=== PATIENT | female | born 1970 | race Caucasian/White ===

== ENCOUNTER 2021-03-14 08:00 | Outpatient (CLI) | payer OTHER ==
[2021-03-14 16:33] LABS: BACTERIAL VAGINOSIS DNA NEGATIVE (NEGATIVE); CANDIDA GLABRATA DNA NEGATIVE (NEGATIVE); CANDIDA GROUP DNA NEGATIVE (NEGATIVE); CANDIDA KRUSEI DNA NEGATIVE (NEGATIVE); TRICHOMONAS VAGINALIS DNA NEGATIVE (NEGATIVE)
[2021-03-14 18:59] LABS: CHLAMYDIA TRACHOMATIS DNA NEGATIVE (NEGATIVE); NEISSERIA GONORRHOEAE DNA NEGATIVE (NEGATIVE); TRICHOMONAS VAGINALIS DNA NEGATIVE (NEGATIVE)
== END 2021-03-14 23:59 ==
LOC: LAB.N 08:00
PROVIDERS: ATTEND Family Medicine
DX: R39.9 Unspecified symptoms and signs involving the genitourinary system (principal); L29.8 Other pruritus; R10.2 Pelvic and perineal pain
CPT/HCPCS: 87086; 87491; 87591; 87661; 87801

== ENCOUNTER 2021-12-14 09:38 | Outpatient (CLI) | payer OTHER ==
[2021-12-14 10:20] VITALS: BP 118/72
--- NOTE | 2021-12-14 10:20 | SLEEP CARE CONSULTATION ---
Information from patient questionnaire entered by Alexia Chapa. I have reviewed and concur with the information entered by Alexia Chapa. This document represents the service I personally performed and the decisions made by me, María Reis ARNP. History of Present Illness Service Date and Time: 12/14/2021 0938 Reason for Visit: New patient Chief Complaint: reports: Insomnia, Unrefreshed sleep, Snoring, Excessive daytime sleepiness, Fatigue, Frequent awakenings at night Date of Onset: 20 PLUS YEARS Usual bedtime: 10PM Time it takes to fall asleep: 15-30MIN Snores at night: Yes Observed to quit breathing while asleep: No Sleeps alone due to snoring: Yes Number of times waking at night: 2 Reasons for waking at night: reports: Gasping for air (not as much recently), Bathroom, Other (UNKNOWN REASONS ) Toss, Turn, or Twitch while sleeping: Yes Recalls having dreams: No Usually gets out of bed at: BETWEEN 6-9AM Feels refreshed in the morning: No Morning headache: Yes (4-5 times a week; RESOLVES AFTER BEING AWAKE 30MIN TO AN HOUR) Sleepy or fatigued during the day: Yes (if she sits down after work she will fall asleep) Ever fallen asleep while driving: No Takes day naps: Yes (daily for 1-2 hours; some improved in last 2 weeks) Dreams during day naps: No Prior sleep studies: No Additional HPI information: I had the pleasure of seeing DIANA MCNAIR today regarding the possibility of her having a sleep disorder. Her current complaints are insomnia, unrefreshed sleep, snoring, excessive daytime sleepiness, fatigue and frequent night awakenings. Diana states she has had sleeping/feeling rested issues since she was a teenager. She has snored for a long time. She states she does not have trouble falling asleep. She rarely stays asleep throughout the night. She will wake up 1-3 times a night and stays awake about an hour before dozing back off to sleep. She is not sure why she is awakening, sometimes for the bathroom. She is a loud and frequent snorer according to her family but no one has noted pauses in breathing. She states she used to cough a lot when sleeping and wake up gasping for air but this is not as often in last few months. She started Trazodone for sleep and this is helping her stay asleep and sleep longer. She thinks has also helped with the cough/gasping at night frequency because that is when the episodes started reducing. She will take naps most days and if she sits down after work or other times during the day she can easily fall asleep. 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 Patient is and lives in . Have you smoked in the past 12 months: No Alcohol use: No Caffeine use: Yes Caffeine amount and frequency: 1 soda occassional energy drink 1-2 times per month Family History Family history of sleep disordered breathing: Yes Family Hx Sleep Apnea: Mother: Snoring, Father: Snoring, Sibling: Snoring, Sleep apnea - Untreated, Grandparent: Snoring, Sleep apnea - Untreated Allergies and Home Medications Known drug allergies: No Drug allergies reviewed: Yes (NKDA) Home medication list reviewed: Yes Allergy and home medication list: Medications: Trazodone 100 mg, prn (5 nights a week) Luvora - oral control Review of Systems Weight gain over past 5 years: 40 Cardiovascular: denies: high blood pressure Respiratory: reports: chronic cough Gastrointestinal: denies: heartburn Urinary: reports: incontinence Neurological: reports: headaches Ear/Nose/Throat: reports: sinus problems, wisdom teeth removed. denies: tonsillectomy Endocrine: reports: history of goiter Musculoskeletal: reports: back pain Immunologic: reports: other (seasonal allergies ) Physical Exam Vital signs obtained and entered by: ALEXIA Rock MA Blood Pressure: 118/72 (left arm ) Cuff size: long Heart Rate: 108 O2 Saturation: 97 Height: 5 ft 3 in Weight: 214 lb 6.4 oz Body Mass Index: 38.0 BMI Classification: Obese Neck circumference: 17 Mouth and throat: narrow oropharynx Soft palate: long Hard palate: normal Uvula: normal Uvula visualization: 25% Mallampati Class III Tongue: enlarged in size with teeth sharif on lateral edges Tonsils: small Neck: normal w/o lymphadenopathy or thyromegaly Heart: regular rate and rhythm Lungs: clear bilaterally Impression and Plan 1. Suspected Obstructive Sleep Apnea-Hypopnea Syndrome, as suggested by a history of loud and irregular snoring, gasping or choking in sleep, morning headache, frequent awakening during the night, unrefreshed sleep, cognitive impairment, and excessive daytime sleepiness. Narrow oropharynx and obesity are common predisposing factors for obstructive sleep apnea-hypopnea syndrome. I recommend proceeding to polysomnography to confirm the diagnosis and to assess severity. If the patient has significant sleep disordered breathing, a manual CPAP titration study will also be performed to find the optimal treatment pressure. I informed the patient of what the sleep studies involve and after some discussion, obtained agreement to proceed. The pathophysiology of obstructive sleep apnea-hypopnea syndrome was discussed with the patient and health risks of cardiovascular and cerebrovascular disease if not treated. 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 Patient agreed to plan. * Schedule polysomnography * Avoid long distance driving or driving when feeling sleepy. * Avoid alcohol, sedative and muscle relaxant around bedtime. * Attempt to lose weight. * Review instructions provided by trained office staff on how to prepare for the sleep study. * Return for follow-up after sleep study completed. Counseling Topics: Weight loss health impact Visit Type: In Office Time Spent with Patient (minutes): 30 Provider Statement: I spent 100% of the Face to Face Visit with the patient with greater than 50% spent counseling the patient and coordination of care.
== END 2021-12-14 09:39 | disposition home or self-care (01) ==
LOC: SC 09:38
PROVIDERS: ATTEND Nurse Practitioner Family
DX: R06.83 Snoring (principal); G47.8 Other sleep disorders; G47.00 Insomnia, unspecified; R51.9 Headache, unspecified; G47.10 Hypersomnia, unspecified; R53.83 Other fatigue; E66.9 Obesity, unspecified; Z68.38 Body mass index [BMI] 38.0-38.9, adult
CPT/HCPCS: 99203; 99212

== ENCOUNTER 2022-01-16 08:20 | Outpatient (CLI) | payer OTHER | END 2022-01-16 08:21 | disposition home or self-care (01) | LOC: SC 08:20 | PROVIDERS: ATTEND Nurse Practitioner Family | DX: G47.33 Obstructive sleep apnea (adult) (pediatric) (principal); R09.02 Hypoxemia | CPT/HCPCS: 95806 ==

== ENCOUNTER 2022-01-31 14:58 | Outpatient (CLI) | payer OTHER ==
[2022-01-31 15:30] VITALS: BP 150/80
--- NOTE | 2022-01-31 15:30 | SLEEP CARE CONSULTATION ---
Information from patient questionnaire entered by Teresa Clark. I have reviewed and concur with the information entered by Teresa Clark. This document represents the service I personally performed and the decisions made by me, María Reis ARNP. History of Present Illness Service Date and Time: 01/31/2022 1450 Initial [place] Sleepiness Scale score: 11 (11/22/2021) Current [place] Sleepiness Scale score: 10 (01/31/22) Additional HPI information: OLMAN MCNAIR returns for follow up and results of the recently performed home sleep study. I explained the pathophysiology behind obstructive sleep apnea. We then spent quite a bit of time discussing different treatment options. For mild obstructive sleep apnea, surgery and oral appliance are alternatives to nasal CPAP therapy but in moderate or severe cases, nasal CPAP is the most effective and reliable treatment. Because apnea is primarily in supine position, then positional management therapy could be effective. Methods discussed such as positioning with pillows to prevent supine sleep. I reviewed the impact of weight changes on sleep apnea and strongly recommended losing weight. After some discussion, the patient opted to go with the nasal CPAP therapy. Nasal autoCPAP set at 4-15 cmH20 will be ordered with rationale explained. A manual titration study will be ordered if unable to find optimal pressure with office adjustments. I explained how CPAP machine works and what to expect when using the machine. Using CPAP every night in order to get used to it was emphasized. Patient advised to put CPAP mask on before getting into bed so as not to fall asleep without CPAP. To assist acclimation to CPAP use, it could also be used for a short time during day while reading or watching TV. The patient was instructed to call the CPAP supplier to discuss any mechanical problem that may occur. If the mask given is uncomfortable or is difficult to keep on through the night even with adjustment, contact the CPAP supplier as many will replace with another mask style if notified before 30 days. If snoring or perceives is not getting enough air or too much air from the machine, notify this office. Patient does not drink alcohol. Patient was cautioned about risks of drowsy driving until sleepiness symptoms resolve. Patient denies drowsy driving. Sleep Study - Results Type of Sleep Study: Home sleep study (DONE 01/16/22) Prior sleep studies: No Polysomnography/Home Sleep Study results: Physician Impression: The quality of the study is good. The length of the study is adequate (> 240 minutes). Please also see the tabulated and graphic data. 1. Obstructive Sleep Apnea-Hypopnea (ICD-10 G47.33), mild, with an AHI of 12.2/hr and clement SaO2 of 77%. During the study, the patient had 107 apneas (107 obstructive, 0 central, 0 mixed) and 41 hypopneas. The longest episode lasted 84.0 seconds. The patient did not sleep supine during this study. 2. Hypoxemia (ICD-10 R09.02), moderate, with the lowest oxygen saturation of 77 % and 11.4 minutes with SaO2 under 90%. Baseline oxygen saturation was normal (Average oxygen saturation was 95%). Allergies and Home Medications Drug allergies reviewed: Yes (NKDA) Home medication list reviewed: Yes (no changes) Review of Systems Review of systems same as previous: Yes (no changes) Physical Exam Vital signs obtained and entered by: SHERICE CRUZ Blood Pressure: 150/80 (LEFT ARM ) Cuff size: long Heart Rate: 96 O2 Saturation: 97 Height: 5 ft 3 in Weight: 219 lb Body Mass Index: 38.7 BMI Classification: Obese Impression and Plan 1. Obstructive Sleep Apnea-Hypopnea Syndrome, mild, with lowest oxygen saturation of 77%. Obviously this is the cause of the patients symptoms of unrefreshed sleep, and excessive daytime sleepiness. Positive pressure therapy could benefit asthma. As mentioned above, the patient will be started on nasal autoCPAP therapy with pressure set at 4-15 cmH2O. Compliance guidelines also reviewed. A copy of compliance guidelines will be given for reference at check out. 2. Hypoxemia, moderate, with the lowest oxygen saturation of 77 % and 11.4 minutes with SaO2 under 90%. Her baseline oxygen saturation was normal with an average oxygen saturation of 95%. * Nasal auto CPAP therapy, pressure at 4-15 cm H2O. * Attempt to lose weight. * Avoid alcohol consumption near bedtime. * Avoid supine sleep until using CPAP. * The patient is again cautioned about driving until sleepiness completely resolves. * Return one month after CPAP obtained. I will assess response to therapy and compliance at that time. Counseling Topics: Weight loss health impact Visit Type: In Office Time Spent with Patient (minutes): 20 Provider Statement: I spent 100% of the Face to Face Visit with the patient with greater than 50% spent counseling the patient and coordination of care.
== END 2022-01-31 14:59 | disposition home or self-care (01) ==
LOC: SC 14:58
PROVIDERS: ATTEND Nurse Practitioner Family
DX: G47.33 Obstructive sleep apnea (adult) (pediatric) (principal); R09.02 Hypoxemia; E66.9 Obesity, unspecified; Z68.38 Body mass index [BMI] 38.0-38.9, adult
CPT/HCPCS: 99212; 99213

== ENCOUNTER 2022-03-22 10:10 | Outpatient (CLI) | payer OTHER ==
[2022-03-22 10:39] VITALS: BP 126/78
--- NOTE | 2022-03-22 10:39 | SLEEP CARE CONSULTATION ---
Information from patient questionnaire entered by Alexia Chapa. I have reviewed and concur with the information entered by Alexia Chapa. This document represents the service I personally performed and the decisions made by , María Reis ARNP. History of Present Illness Service Date and Time: 03/22/2022 1010 Previous diagnosis: Mild, Obstructive Sleep Apnea-Hypopnea Syndrome AHI: 12.2 (in 2021) Reason for follow up: first compliance Equipment type: CPAP (RESMED Airsense 11 s/u 01/2022) Equipment obtained from: [employer] (getting supplies) Mask style: Full face Mask brand: Resmed (AirFit F20) Backup mask available: Yes (other mask) Prior sleep studies: No Type of Sleep Study: Home sleep study (DONE 01/16/22) HPI additional information: DIANA MCNAIR was diagnosed to have mild, AHI 12.2, obstructive sleep apnea- hypopnea syndrome and returned today for CPAP therapy first compliance follow- up. Sleep Study - Results Type of Sleep Study: Home sleep study (DONE 01/16/22) Prior sleep studies: No CPAP Compliance Data - Data Reviewed with Patient Average duration of nightly device use: 8 HRS 22 MIN Compliance rate %: 100 (02/19/22-03/20/22; 30 days used) Current pressure setting (cmH2O): 4-15 (median 6.8, avg 10.8, max 12.4) Average residual AHI: 0.3 Central apnea: 0.1 Obstructive apnea: 0.1 Hypopnea: 0.1 Subjective Patient concerns: reports: mask discomfort (improving as she gets used to the mask), air blowing in eyes (from F30i, not using now), mask leak noise (occasional, not bother her much), nasal congestion (occasional, mild). denies: aerophagia, condensation in mask/hose, dry mouth, nose, throat, epistaxis Observed to snore while using device: No Current pressure setting perceived as: too low (at initial startup and occasionally when wakes up at night) On therapy, patient: reports: sleeping better, awakening more refreshed, being more awake and alert during the day, more rested overall. denies: drowsiness while driving Initial [place] Sleepiness Scale score: 11 (11/22/2021) Current [place] Sleepiness Scale score: 4 (03/22/22) Allergies and Home Medications Drug allergies reviewed: Yes (NKDA) Home medication list reviewed: Yes (no changes) Review of Systems Review of systems same as previous: Yes (no changes) Physical Exam Vital signs obtained and entered by: ALEXIA Rock MA Blood Pressure: 126/78 (LEFT ARM) Cuff size: regular Heart Rate: 88 O2 Saturation: 97 Height: 5 ft 3 in Weight: 217 lb 3.2 oz Body Mass Index: 38.5 BMI Classification: Obese Impression and Plan 1. Obstructive Sleep Apnea-Hypopnea Syndrome, mild, with good treatment compliance and good apnea control. On CPAP therapy, the patient has better sleep quality and is more rested overall. She started with a Resmed Airfit F20 but then tried a F30i but felt she had a lot more air leaking into her eyes with the F30i. She changed back to the F20 and feels she is getting used to it and the mask is not as uncomfortable as she thought it was at first. Diana feels the pressure is a little low when she starts the machine at night and sometimes she will wake up in middle of night with same feeling. The patients pressure will be changed to autoCPAP 8-12 cmH20 to reflect pressures being used and her ramp starting pressure will be increased to 6 cmH2O. Patient advised to contact me if pressure change is uncomfortable so that it can be adjusted. Goals for apnea co ntrol discussed. She voiced understanding. Patient's apnea severity and rationale for treatment to reduce apnea, improve sleep quality and reduce cardiovascular and cerebrovascular events was reviewed. I also reviewed the benefit of consistent device use of CPAP for asthma. 2. Obesity, unspecified. Currently patients BMI is 38.5. Obesity increases the risk of apnea, CPAP pressure requirements and overall health risks especially cardiovascular and diabetes. Thus patient is advised to lose weight. * Increase ramp starting pressure to 6 cmH2O * Change auto CPAP pressure to 8-12 cmH2O * Notify me if snoring with mask or feeling that the pressure is too much or too little * Attempt to lose weight * Call this office if any problems using CPAP * Return for follow up in 1-2 months, or sooner if concerns arise Counseling Topics: Spare mask, Weight loss health impact Visit Type: In Office Time Spent with Patient (minutes): 22 Provider Statement: I spent 100% of the Face to Face Visit with the patient with greater than 50% spent counseling the patient and coordination of care.
== END 2022-03-22 10:11 | disposition home or self-care (01) ==
LOC: SC 10:10
PROVIDERS: ATTEND Nurse Practitioner Family
DX: G47.33 Obstructive sleep apnea (adult) (pediatric) (principal); E66.9 Obesity, unspecified; Z68.38 Body mass index [BMI] 38.0-38.9, adult
CPT/HCPCS: 99212; 99213

== ENCOUNTER 2022-05-03 10:58 | Outpatient (CLI) | payer OTHER ==
[2022-05-03 11:39] VITALS: BP 126/78
--- NOTE | 2022-05-03 11:39 | SLEEP CARE CONSULTATION ---
Information from patient questionnaire entered by Freddy Chapa. I have reviewed and concur with the information entered by Freddy Chapa. This document represents the service I personally performed and the decisions made by , María Reis ARNP. History of Present Illness Service Date and Time: 05/03/2022 1058 Previous diagnosis: Mild, Obstructive Sleep Apnea-Hypopnea Syndrome AHI: 12.2 (in 2021) Reason for follow up: other (SIX WEEK F/U PRESSURE CHANGE) Equipment type: CPAP (RESMED Airsense 11 s/u 01/2022) Equipment obtained from: [employer] ([employer]) Mask style: Full face Mask brand: Resmed (F20, AirTouch) Backup mask available: Yes (other mask) Last cushion change: 6 weeks Prior sleep studies: No Type of Sleep Study: Home sleep study (DONE 01/16/22) HPI additional information: OLMAN MCNAIR was diagnosed to have mild, AHI 12.2, obstructive sleep apnea- hypopnea syndrome and returned today for CPAP therapy six weeks follow-up. Sleep Study - Results Type of Sleep Study: Home sleep study (DONE 01/16/22) Prior sleep studies: No CPAP Compliance Data - Data Reviewed with Patient Average duration of nightly device use: 7 HRS 18 MIN Compliance rate %: 100 (04/02/22-05/01/22; days used) Current pressure setting (cmH2O): 8-12 Average residual AHI: 0.3 Central apnea: 0.1 Obstructive apnea: 0.1 Hypopnea: 0.1 Subjective Patient concerns: denies: aerophagia, mask discomfort, air blowing in eyes, mask leak noise, condensation in mask/hose, nasal congestion, dry mouth, nose, throat, epistaxis Observed to snore while using device: No Current pressure setting perceived as: comfortable On therapy, patient: reports: sleeping better, awakening more refreshed, being more awake and alert during the day, more rested overall. denies: drowsiness while driving Initial [place] Sleepiness Scale score: 11 (11/22/2021) Current [place] Sleepiness Scale score: 3 (05/03/22) Allergies and Home Medications Known drug allergies: No Drug allergies reviewed: Yes Home medication list reviewed: Yes (no changes) Allergy and home medication list: Allergies No Known Drug Allergies Allergy (Verified 05/02/22 14:01) Review of Systems Review of systems same as previous: Yes (no changes) Physical Exam Vital signs obtained and entered by: FREDDY Rock MA Blood Pressure: 126/78 (LEFT ARM) Cuff size: regular Heart Rate: 75 O2 Saturation: 97 Height: 5 ft 3 in Weight: 220 lb Body Mass Index: 38.9 BMI Classification: Obese Impression and Plan 1. Obstructive Sleep Apnea-Hypopnea Syndrome, mild, with good treatment compliance and good apnea control. On CPAP therapy, the patient has better sleep quality and is more rested overall. She states she is getting comfortable with using the CPAP. She has occasional wakeups at night but does not feel it is related to her CPAP. Patient has significant improvement of their sleep apnea and is satisfied with current CPAP therapy. Patient denies problems with oral dryness, nasal congestion, epistaxis, skin irritation or aerophagia. Patient's apnea severity and rationale for treatment to reduce apnea, improve sleep quality and reduce cardiovascular and cerebrovascular events was reviewed. I also reviewed the benefit of consistent device use of CPAP for asthma. 2. Obesity, unspecified. Currently patients BMI is 38.9. Obesity increases the risk of apnea, CPAP pressure requirements and overall health risks especially cardiovascular and diabetes. Thus patient is advised to lose weight. * Continue auto CPAP pressure at 8-12 cmH2O * Notify me if snoring with mask or feeling that the pressure is too much or too little * Attempt to lose weight * Call this office if any problems using CPAP * Return for follow up in 3 months, or sooner if concerns arise Counseling Topics: Spare mask, Weight loss health impact Visit Type: In Office Time Spent with Patient (minutes): 13 Provider Statement: I spent 100% of the Face to Face Visit with the patient with greater than 50% spent counseling the patient and coordination of care.
== END 2022-05-03 10:59 | disposition home or self-care (01) ==
LOC: SC 10:58
PROVIDERS: ATTEND Nurse Practitioner Family
DX: G47.33 Obstructive sleep apnea (adult) (pediatric) (principal); E66.9 Obesity, unspecified; Z68.38 Body mass index [BMI] 38.0-38.9, adult
CPT/HCPCS: 99212

== ENCOUNTER 2022-06-03 15:22 | Outpatient (CLI) | payer OTHER ==
--- NOTE | 2022-06-03 16:51 | XRAY Report ---
PROCEDURE: Lumbar Spine 2 View INDICATIONS: LOW BACK PAIN TECHNIQUE: 3 views of the lumbar spine were acquired. COMPARISON: None. FINDINGS: Bones: There is loss of normal lumbar lordosis. Multilevel disc space narrowing and endplate osteophy te formation, as well as facet hypertrophy predominantly within the mid and lower lumbar spine. No ve rtebral body compression fractures. No suspicious bony lesions. Soft tissues: Overlying bowel gas pattern is normal. No suspicious soft tissue calcifications. IMPRESSION: Multilevel degenerative disc and facet disease. No acute fracture. No osseous lesion. If symptoms and/or clinical suspicion for pathology continue, further assessment with repeat plain film s, or advanced imaging (e.g., CT, MRI, or bone scan) is recommended for further assessment. Reviewed by: Narcisa Myrick MD on 06/03/2022 4:50 PM PDT Approved by: Narcisa Myrick MD on 06/03/2022 4:50 PM PDT Station ID: [id number]
== END 2022-06-03 15:23 | disposition home or self-care (01) ==
LOC: DI 15:22
PROVIDERS: ATTEND Student in an Organized Health Care Education/Training Program
DX: M47.816 Spondylosis without myelopathy or radiculopathy, lumbar region (principal); M51.36 Other intervertebral disc degeneration, lumbar region

== ENCOUNTER 2022-07-03 15:26 | Outpatient (CLI) | payer OTHER ==
--- NOTE | 2022-07-04 08:30 | MRI Report ---
PROCEDURE: LUMBAR SPINE WO INDICATIONS: LOW BACK PAIN TECHNIQUE: Noncontrast sagittal T1 spin echo and T2 fast echo, sagittal STIR, axial T1 and T2 fast spin echo thr ough the lumbar spine. In cases with scoliosis, additional coronal T2 fast spin echo may be performe d. COMPARISON: Lumbar spine plain films dated 06/03/2022. FINDINGS: Image quality: Excellent. Alignment and Curvature: There is normal bony alignment. Bone Marrow: Marrow is of normal overall signal. No acute vertebral body compression fractures. Spinal Cord: Conus medullaris terminates at the T12 level. Visualized cord demonstrates normal sign al and size. Paraspinous Soft Tissues: No paravertebral masses. T12-L1: Normal in appearance. L1-L2: There is a broad-based disc extrusion with disc material seen extending both superior and i nferior to the disc space. Extruded disc material measures 1.8 x 1.9 x 0.4 cm. There is impression on the thecal sac and at least moderate central canal stenosis. Mild bilateral foraminal stenosis. L2-L3: There is right posterior lateral disc bulge with associated far lateral disc protrusion. There is mild to moderate narrowing of the right side of the spinal canal. The right L3 nerve root is howard ated posteriorly in the right lateral recess. There is moderate right foraminal narrowing. The right L2 nerve root is abutted far laterally. Mild facet hypertrophy. Left foramen is patent. L3-L4: Large relatively broad-based right paracentral disc protrusion results in significant compre ssion on the thecal sac and marked narrowing of the right side of the canal and moderate central kj l stenosis. There is mild right foraminal stenosis. There is large left foraminal disc bulge which re sults in moderate left foraminal narrowing. There is bilateral facet hypertrophy. L4-L5: Severe chronic disc height loss. Mild broad-based right paracentral disc protrusion which mi ldly impinges on the right L5 nerve root in the right lateral recess. No central canal stenosis. Bila teral facet hypertrophy. Mild to moderate foraminal narrowing and mild left foraminal narrowing. L5-S1: Bilateral facet hypertrophy. No central canal stenosis. There is severe right foraminal narr owing with right foraminal L5 nerve root impingement. IMPRESSION: 1. A large broad-based disc protrusion at L1-L2 is somewhat shallow and the AP dimension. It results in at least moderate central canal stenosis. 2. A large relatively broad-based right paracentral disc protrusion compresses multiple right-sided n erve roots with marked narrowing of the right side of the canal and moderate central canal stenosis. 3. There is severe right foraminal narrowing at L5-S1 with foraminal right L5 nerve root impingement. 4. At L2-L3, there is mild to moderate stenosis of the right side of the canal. Reviewed by: Asif Hernandez MD on 07/04/2022 8:29 AM PDT Approved by: Asif Hernandez MD on 07/04/2022 8:29 AM PDT Station ID: [id number]
== END 2022-07-03 15:27 | disposition home or self-care (01) ==
LOC: DI 15:26
PROVIDERS: ATTEND Student in an Organized Health Care Education/Training Program
DX: M51.16 Intervertebral disc disorders with radiculopathy, lumbar region (principal); M51.36 Other intervertebral disc degeneration, lumbar region; M48.061 Spinal stenosis, lumbar region without neurogenic claudication; M47.816 Spondylosis without myelopathy or radiculopathy, lumbar region; M47.27 Other spondylosis with radiculopathy, lumbosacral region; M48.07 Spinal stenosis, lumbosacral region

== ENCOUNTER 2022-08-02 11:05 | Outpatient (CLI) | payer OTHER ==
--- NOTE | 2022-08-02 11:38 | SLEEP CARE CONSULTATION ---
Information from patient questionnaire entered by Freddy Chapa. I have reviewed and concur with the information entered by Freddy Chapa. This document represents the service I personally performed and the decisions made by , María Reis ARNP. History of Present Illness Service Date and Time: 08/02/2022 1105 Previous diagnosis: Mild, Obstructive Sleep Apnea-Hypopnea Syndrome AHI: 12.2 (in 2021) Reason for follow up: three month (3 MONTH F/U) Equipment type: CPAP (RESMED Airsense 11 s/u 01/2022) Equipment obtained from: [employer] (Infer supplies) Mask style: Full face Mask brand: Resmed ([id number]) Backup mask available: Yes (old mask) Prior sleep studies: No Type of Sleep Study: Home sleep study (DONE 01/16/22) HPI additional information: OLMAN MCNAIR was diagnosed to have mild, AHI 12.2, obstructive sleep apnea- hypopnea syndrome and returned today for CPAP therapy three month follow-up. Sleep Study - Results Type of Sleep Study: Home sleep study (DONE 01/16/22) Prior sleep studies: No CPAP Compliance Data - Data Reviewed with Patient Average duration of nightly device use: 6 HRS 59 MINS Compliance rate %: 88 (05/03/22-07/31/22; 83/90 days used) Current pressure setting (cmH2O): 8-12 Average residual AHI: 0.3 Central apnea: 0.2 Obstructive apnea: 0 Hypopnea: 0.1 Subjective Missed days of use due to: reports: other (falling asleep without mask on) Patient concerns: reports: air blowing in eyes. denies: aerophagia, mask discomfort, mask leak noise, condensation in mask/hose, nasal congestion, dry mouth, nose, throat, epistaxis Observed to snore while using device: No Current pressure setting perceived as: comfortable On therapy, patient: reports: sleeping better, awakening more refreshed, being more awake and alert during the day, more rested overall. denies: drowsiness while driving Initial Brooks Sleepiness Scale score: 11 (11/22/2021) Current Brooks Sleepiness Scale score: 14 (08/02/22; new med, gabapentin) Allergies and Home Medications Known drug allergies: No Drug allergies reviewed: Yes Home medication list reviewed: Yes (Gabapentin 300 mg, 3 x a day) Allergy and home medication list: Allergies No Known Drug Allergies Allergy (Verified 08/01/22 13:48) Review of Systems Review of systems same as previous: No (back pain - cortisone shot pending) Physical Exam Vital signs obtained and entered by: FREDDY Rock MA Blood Pressure: 128/78 (LEFT ARM) Cuff size: long Heart Rate: 74 O2 Saturation: 97 Height: 5 ft 3 in Weight: 221 lb Body Mass Index: 39.1 BMI Classification: Obese Impression and Plan 1. Obstructive Sleep Apnea-Hypopnea Syndrome, mild, with good treatment compliance and good apnea control. On CPAP therapy, the patient has better sleep quality and is more rested overall. She started a new medication, gabapentin, and it is causing more sleepiness right now. She feels every thing with sleep in going well. Patient has significant improvement of their sleep apnea and is satisfied with current CPAP therapy. Patient denies problems with oral dryness, nasal congestion, epistaxis, skin irritation or aerophagia. Patient's apnea severity and rationale for treatment to reduce apnea, improve sleep quality and reduce cardiovascular and cerebrovascular events was reviewed. I also reviewed the benefit of consistent device use of CPAP for asthma. 2. Obesity, unspecified. Currently patients BMI is 39.1. Obesity increases the risk of apnea, CPAP pressure requirements and overall health risks especially cardiovascular and diabetes. Thus patient is advised to lose weight. * Continue auto CPAP pressure at 8-12 cmH2O * Notify me if snoring with mask or feeling that the pressure is too much or too little * Attempt to lose weight * Call this office if any problems using CPAP * Return for follow up in 6 months, or sooner if concerns arise Counseling Topics: Spare mask, Weight loss health impact Visit Type: In Office Time Spent with Patient (minutes): 20 Provider Statement: I spent 100% of the Face to Face Visit with the patient with greater than 50% spent counseling the patient and coordination of care.
[2022-08-02 11:42] VITALS: BP 128/78
== END 2022-08-02 11:06 | disposition home or self-care (01) ==
LOC: SC 11:05
PROVIDERS: ATTEND Nurse Practitioner Family
DX: G47.33 Obstructive sleep apnea (adult) (pediatric) (principal); E66.9 Obesity, unspecified; Z68.39 Body mass index [BMI] 39.0-39.9, adult
CPT/HCPCS: 99212; 99213